=== PATIENT | female | born 2000 | race Caucasian/White ===

== ENCOUNTER 2020-03-08 21:30 | Emergency (ER) | payer SELFPAY ==
[~2020-03-08] VITALS: Ht 157.5 cm; Wt 54.4 kg
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
[2020-03-08] MEDS ORDERED: TETRACAINE HCL 0.5% OPTH SOLN 4 ML BTL OP ONE ×2 (21:45)
[2020-03-08] MEDS ORDERED: FLUORESCEIN SOD(OPTH) 1 MG STRP OP ONE (21:45)
== END 2020-03-08 21:53 | disposition home or self-care (01) ==
LOC: ER 21:40
DX: H16.001 Unspecified corneal ulcer, right eye (principal); W51.XXXA Accidental striking against or bumped into by another person, initial encounter
CPT/HCPCS: 99283